=== PATIENT | female | born 1970 | race Caucasian/White ===

== ENCOUNTER 2021-12-26 11:40 | Outpatient (CLI) | payer BC, MEDICAID, SELFPAY ==
--- NOTE | 2021-12-26 11:59 | XR_ITS ---
WS: [email or web address] Lumbar spine, 3 views, 12/26/2021 Clinical Data: CHRONIC BACK PAIN Comparison: None. Findings: No compression fractures or subluxation is seen. No disc space narrowing is seen. The transverse proc esses and SI joints are normal. There is osteoarthritis of the thoracic vertebral bodies L-1-L5. There are clips in the right upper q uadrant from a cholecystectomy. XR/XR lumbar spine 2-3V* [id number] Impression: Mild osteoarthritis of the vertebral bodies L1-L5.
--- NOTE | 2021-12-26 11:59 | XR_ITS ---
WS: [email or web address] Thoracic spine, 3 views, 12/26/2021 Clinical Data: CHRONIC BACK PAIN Comparison: None. Findings: No compression fractures are seen. The disc heights are normal. Mild osteoarthritis of the thoracic vertebral bodies is noted. The disc spaces are unremarkable. The paravertebral region is normal. There are clips in the right upper quadrant from a cholecystectomy. XR/XR thoracic spine 3V* [id number] Impression: Mild osteoarthritis of the thoracic vertebral bodies.
--- NOTE | 2021-12-26 11:59 | XR_ITS ---
WS: [email or web address] Cervical spine, 3 views, 12/26/2021 Clinical Data: CHRONIC NECK PAIN Comparison: None. Findings: No compression fractures are seen. There is disc space narrowing at C5-C6. Minimal osteoart hritic spurring is present at C5-C6. There is no prevertebral soft tissue swelling. The odontoid is u nremarkable. The soft tissues of the neck and the lung apices are normal. XR/XR cervical spine 3V* [id number] Impression: Mild osteoarthritis and disc space narrowing at C5-C6.
== END 2021-12-26 11:41 | disposition home or self-care (01) ==
PROVIDERS: PCP Family Medicine; Visit Provider Family Medicine
DX: M47.812 Spondylosis without myelopathy or radiculopathy, cervical region (principal); M47.816 Spondylosis without myelopathy or radiculopathy, lumbar region; M47.814 Spondylosis without myelopathy or radiculopathy, thoracic region
CPT/HCPCS: 72040; 72072; 72100

== ENCOUNTER 2022-01-14 13:51 | Outpatient (CLI) | payer BC, MEDICAID, SELFPAY ==
--- NOTE | 2022-01-14 13:58 | MR_ITS ---
WS: [email or web address] MRI HEAD WITHOUT CONTRAST TECHNIQUE: Sagittal T1, T2 axial, T2 axial FLAIR, axial and coronal T1 images, axial susceptibility w eighted imaging, axial diffusion weighted images, and coronal T2 images were obtained. CLINICAL INFORMATION: CHRONIC MIGRAINE/VISION CHANGES COMPARISON: None. FINDINGS: No evidence of restricted diffusion to suggest acute ischemia. Ventricular system and basal cisterns are patent. No suspicious intracranial signal abnormalities. Normal templeton-white differentiation. Roxy l posterior fossa. Normal vascular flow voids at the skull base. No extra-axial fluid collections. No evidence of mass or mass effect. Mild mucosal thickening in the paranasal sinuses. Mastoid air cells well aerated. No hemosiderin on s usceptibly weighted images. Normal optic chiasm and pituitary infundibulum. Temporal lobes and hippoc ampal formations are normal in appearance. MR/MR head wo con* [id number] IMPRESSION: 1. No evidence of restricted diffusion to suggest acute ischemia. 2. No suspicious intracranial signal abnormalities. Normal templeton-white differen tiation. 3. Mild mucosal thickening in the paranasal sinuses. Mastoid air cells are wel l aerated. 4. No hemosiderin on susceptibly weighted images. 5. Normal optic chiasm and pituitary infundibulum. 6. No other significant findings.
== END 2022-01-14 13:52 | disposition home or self-care (01) ==
LOC: RAD 13:52
PROVIDERS: PCP Family Medicine; Visit Provider Family Medicine
DX: G43.909 Migraine, unspecified, not intractable, without status migrainosus (principal); H53.9 Unspecified visual disturbance
CPT/HCPCS: 70551

== ENCOUNTER 2023-12-04 14:06 | Outpatient (CLI) | payer OTHER, BC, MEDICAID, SELFPAY ==
--- NOTE | 2023-12-04 14:20 | XR_ITS ---
WS: [email or web address] Lumbar spine, AP view, lateral views in flexion, extension and neutral position, 12/04/2023 Clinical Data: DISK HERNIATION Comparison: Lumbar spine, 12/26/2021 Findings: No compression fractures or subluxation is seen. No disc space narrowing is seen. The transverse proc esses and SI joints are normal. There is minimal anterior osteoarthritic spurring L1-L5. On flexion and extension there is no limitat ion of motion or subluxation. There are cholecystectomy clips in the right upper quadrant. Impression: 1. Mild osteoarthritis of vertebral bodies L1-L5. 2. Negative for limitation of motion or subluxation on flexion or extension.
== END 2023-12-04 14:07 | disposition home or self-care (01) ==
PROVIDERS: PCP Internal Medicine; Visit Provider Family Medicine
DX: M51.26 Other intervertebral disc displacement, lumbar region (principal); M47.816 Spondylosis without myelopathy or radiculopathy, lumbar region
CPT/HCPCS: 72110

== ENCOUNTER 2024-12-14 08:12 | Outpatient (CLI) | payer BC, MEDICAID, SELFPAY ==
--- NOTE | 2024-12-14 08:25 | XRR_ITS ---
PROCEDURE INFORMATION: Exam: XR Lumbosacral Spine Exam date and time: 12/14/2024 8:55 AM Age: 54 years old Clinical indication: Low back pain; Right hip and lower back pain after fall on August 07 TECHNIQUE: Imaging protocol: Radiologic exam of the lumbosacral spine. Views: 2 or 3 views. COMPARISON: CR XR lumbar spine min 4V [id number] 12/04/2023 2:30 PM FINDINGS: Bones/joints: Mild scoliosis convex to the left. Minimal degenerative disc disease from the T1 level to the L5 level. Otherwise, unremarkable. Soft tissues: Surgical material. Otherwise, unremarkable soft tissues. XR/XR lumbar spine 2-3V* [id number] IMPRESSION: 1. No acute findings. 2. Additional details as above.
--- NOTE | 2024-12-14 08:26 | XRR_ITS ---
PROCEDURE INFORMATION: Exam: XR Right Hip Exam date and time: 12/14/2024 8:55 AM Age: 54 years old Clinical indication: Hip pain; Right hip and lower back pain after fall on August 07; Additional info: Pain in right hip TECHNIQUE: Imaging protocol: Radiologic exam of the right hip. Views: 1 view hip with pelvis when performed. COMPARISON: CR XR lumbar spine 2-3V* [id number] 12/14/2024 8:55 AM FINDINGS: Bones/joints: Presumed bone island right iliac bone. Otherwise, unremarkable. Soft tissues: Unremarkable. XR/XR hip RT 2-3V wo/w pel* [id number] IMPRESSION: No acute findings.
== END 2024-12-14 08:13 | disposition home or self-care (01) ==
LOC: RAD 08:15
PROVIDERS: PCP Nurse Practitioner Family; Visit Provider Nurse Practitioner Family
DX: M25.551 Pain in right hip (principal); M41.86 Other forms of scoliosis, lumbar region; W19.XXXA Unspecified fall, initial encounter
CPT/HCPCS: 72100; 73502